=== PATIENT | female | born 1975 | race Two or more races ===

== ENCOUNTER 2022-07-01 20:05 | Inpatient (IN) | payer BC, OTHER ==
[~2022-07-01] VITALS: Ht 154.9 cm; Wt 68.2 kg
[2022-07-01 21:26] LABS: BASO # 0.1 10^3/uL (0.0-0.2); BASO % 0.3 % (0.0-1.0); EOS % 0.1 % (0.0-3.0); HEMATOCRIT 36.9 % (36.0-47.0); HEMOGLOBIN 11.5 g/dl (12.0-15.5); LYMPH # 1.3 10^3/uL (1.5-5.0); LYMPH % 7.8 % (24.0-44.0); MEAN CORPUSCULAR HEMOGLOBIN 25.3 pg (27.0-33.0); MEAN CORPUSCULAR HGB CONC 31.2 g/dl (32.0-36.5); MEAN CORPUSCULAR VOLUME 81.3 fl (80.0-96.0); NEUTROPHILS % 85.4 % (36.0-66.0); PLATELET COUNT, AUTOMATED 360 10^3/uL (150-450); RED BLOOD COUNT 4.54 10^6/uL (4.00-5.40); WHITE BLOOD COUNT 16.5 10^3/uL (4.0-10.0)
[2022-07-01 21:32] LABS: LIPASE 39 U/L (12-53)
[2022-07-01 21:34] LABS: ALBUMIN 3.6 G/DL (3.2-5.2); ALKALINE PHOSPHATASE 188 U/L (46-116); ALT/SGPT 15 U/L (7.0-40); AST/SGOT 13 U/L (<34); BILIRUBIN,DIRECT 0.1 MG/DL (<0.4); BILIRUBIN,TOTAL 0.5 MG/DL (0.3-1.2); BLOOD UREA NITROGEN 14 MG/DL (9-23); CALCIUM LEVEL 8.2 MG/DL (8.5-10.1); CARBON DIOXIDE LEVEL 23 MMOL/L (20-31); CHLORIDE LEVEL 106 MMOL/L (98-107); GLOMERULAR FILTRATION RATE > 60.0 (>58); GLUCOSE, FASTING 115 MG/DL (60-100); POTASSIUM SERUM 3.8 MMOL/L (3.5-5.1); SODIUM LEVEL 138 MMOL/L (136-145)
[2022-07-01 21:45] LABS: INR 1.01; PROTHROMBIN TIME 13.5 SECONDS (12.5-14.5)
[2022-07-01] MEDS ORDERED: MORPHINE 4 MG/ML 1ML VIAL IV ONE (21:55)
[2022-07-01] MEDS ORDERED: ONDANSETRON 4MG 2ML VIAL IV ONE (21:55)
[2022-07-01] MEDS ORDERED: NS 1,000 ML IV ONE (22:05)
[2022-07-01 22:29] LABS: HCG, SERUM QUALITATIVE NEGATIVE (NEGATIVE)
[2022-07-01] MEDS ORDERED: ISOVUE-370 76% 100ML VIAL As Ordered ONE (22:57)
[2022-07-01] MEDS ORDERED: cefTRIAXone SOD 1 GM in D5W MINI-BAG PLUS 50 ML IV ONE (23:00)
[2022-07-02] VITALS (10 sets, daily range): BP systolic 124–147; BP diastolic 70–87
[2022-07-02] MEDS ORDERED: KETOROLAC 30 MG/ML 1ML VIAL IV ONE (00:35)
[2022-07-02] MEDS ORDERED: ACETAMINOPHEN TAB 650MG DOSE (2X325MG) PO PRN (02:45)
[2022-07-02] MEDS ORDERED: ONDANSETRON 4MG 2ML VIAL IV PRN (02:45)
[2022-07-02] MEDS ORDERED: MORPHINE 2 MG/ML 1ML VIAL IV PRN (02:45)
[2022-07-02] MEDS: KETOROLAC 30 MG/ML 1ML VIAL IV PRN ×2 (05:58→18:53)
[2022-07-02] MEDS: NS 1,000 ML IV SCH ×2 (06:06→18:32)
[2022-07-02] MEDS: cefTRIAXone SOD 1 GM in D5W MINI-BAG PLUS 50 ML IV SCH (08:46)
[2022-07-02] MEDS ORDERED: HOME MED LIST COMPLETE! XX SCH (09:10)
[2022-07-02] MEDS ORDERED: LIDOCAINE 2% 100MG/5ML SDV (FOR ANES.) As Ordered ONE (15:51)
[2022-07-02] MEDS ORDERED: propofoL 200 MG/20 ML VIAL As Ordered ONE (15:51)
[2022-07-02] MEDS ORDERED: fentaNYL 100 MCG/2 ML INJECTION As Ordered ONE (15:52)
[2022-07-02] MEDS ORDERED: MIDAZOLAM INJ 2MG/2ML VIAL As Ordered ONE (15:52)
[2022-07-02] MEDS ORDERED: ISOVUE-300 61% 100ML VIAL As Ordered ONE (16:04)
[2022-07-03 02:00] VITALS: BP 150/80
[2022-07-03] MEDS: KETOROLAC 30 MG/ML 1ML VIAL IV PRN ×2 (02:26→08:40)
[2022-07-03] MEDS: NS 1,000 ML IV SCH ×2 (02:27→11:55)
[2022-07-03 06:02] VITALS: BP 145/84
[2022-07-03 06:57] LABS: HEMATOCRIT 33.6 % (36.0-47.0); HEMOGLOBIN 10.3 g/dl (12.0-15.5); MEAN CORPUSCULAR HEMOGLOBIN 25.3 pg (27.0-33.0); MEAN CORPUSCULAR HGB CONC 30.7 g/dl (32.0-36.5); MEAN CORPUSCULAR VOLUME 82.6 fl (80.0-96.0); PLATELET COUNT, AUTOMATED 282 10^3/uL (150-450); RED BLOOD COUNT 4.07 10^6/uL (4.00-5.40); WHITE BLOOD COUNT 7.2 10^3/uL (4.0-10.0)
[2022-07-03 07:20] LABS: ALBUMIN 2.9 G/DL (3.2-5.2); ALKALINE PHOSPHATASE 143 U/L (46-116); ALT/SGPT < 9 U/L (7.0-40); AST/SGOT 11 U/L (<34); BILIRUBIN,TOTAL 0.9 MG/DL (0.3-1.2); BLOOD UREA NITROGEN 8 MG/DL (9-23); CALCIUM LEVEL 7.8 MG/DL (8.5-10.1); CARBON DIOXIDE LEVEL 22 MMOL/L (20-31); CHLORIDE LEVEL 108 MMOL/L (98-107); CREATININE FOR GFR 0.53 MG/DL (0.55-1.30); GLOMERULAR FILTRATION RATE > 60.0 (>58); GLUCOSE, FASTING 82 MG/DL (60-100); MAGNESIUM LEVEL 1.7 MG/DL (1.8-2.4); POTASSIUM SERUM 3.5 MMOL/L (3.5-5.1); SODIUM LEVEL 140 MMOL/L (136-145); TOTAL PROTEIN 5.9 G/DL (5.7-8.2)
[2022-07-03] MEDS: cefTRIAXone SOD 1 GM in D5W MINI-BAG PLUS 50 ML IV SCH (08:40)
[2022-07-03] MEDS ORDERED: BACI1CAP PO (08:56)
[2022-07-03] MEDS ORDERED: SENO8.6T10 PO (08:56)
[2022-07-03] MEDS ORDERED: OXYB5TAB10 PO (08:56)
[2022-07-03] MEDS ORDERED: PHEN1TAB73 PO (08:56)
[2022-07-03] MEDS ORDERED: CIPR-249 PO (08:56)
[2022-07-03] MEDS ORDERED: PERC5TAB12 PO (08:56)
[2022-07-03] MEDS ORDERED: cloNIDine 0.2 MG TAB PO ONE (09:00)
[2022-07-03] MEDS ORDERED: PHENAZOPYRIDINE 100 MG TAB PO SCH (09:00)
[2022-07-03] MEDS ORDERED: oxyBUTYnin 5 MG TAB PO SCH (09:00)
[2022-07-03 09:37] VITALS: BP 126/82
[2022-07-03] MEDS ORDERED: MAGNESIUM OXIDE 400MG TAB (MAG-OX) PO ONE (09:55)
[2022-07-03] MEDS ORDERED: MAG SULF 1GM/100ML (MAG RUN) 1 GM in IV 1 EA IV ONE (10:00)
[2022-07-03 10:10] VITALS: BP 126/82
== END 2022-07-03 13:50 | disposition home or self-care (01) | DRG 463 ==
LOC: EDBD 20:05 → M ED 20:05 → M ED INP 07-02 02:43 → M MSPAV 07-02 03:23
PROVIDERS: ADMIT Family Medicine; ATTEND General Practice
PROC: 0T768DZ Dilation of Right Ureter with Intraluminal Device, Via Natural or Artificial Opening Endoscopic (ICD-10-PCS; principal; 2022-07-02 15:30)
DX: N13.6 Pyonephrosis (principal); I10 Essential (primary) hypertension

== ENCOUNTER → 2022-08-02 | Outpatient (CLI) | payer BC, OTHER ==
[~2022-08-02] MED LIST: BACI1CAP PO; CIPR-249 PO; OXYB5TAB10 PO; PERC5TAB12 PO; PHEN1TAB73 PO; SENO8.6T10 PO
[2022-08-02 11:50] LABS: HEMATOCRIT 35.9 % (36.0-47.0); MEAN CORPUSCULAR HEMOGLOBIN 25.1 pg (27.0-33.0); MEAN CORPUSCULAR HGB CONC 30.6 g/dl (32.0-36.5); PLATELET COUNT, AUTOMATED 352 10^3/uL (150-450); RED BLOOD COUNT 4.38 10^6/uL (4.00-5.40); WHITE BLOOD COUNT 5.4 10^3/uL (4.0-10.0)
[2022-08-02 12:18] LABS: ALBUMIN 3.3 G/DL (3.2-5.2); ALKALINE PHOSPHATASE 162 U/L (46-116); ALT/SGPT 19 U/L (7.0-40); AST/SGOT 11 U/L (<34); BILIRUBIN,TOTAL 0.5 MG/DL (0.3-1.2); BLOOD UREA NITROGEN 16 MG/DL (9-23); CALCIUM LEVEL 8.8 MG/DL (8.5-10.1); CARBON DIOXIDE LEVEL 27 MMOL/L (20-31); CHLORIDE LEVEL 107 MMOL/L (98-107); CREATININE FOR GFR 0.62 MG/DL (0.55-1.30); GLOMERULAR FILTRATION RATE > 60.0 (>58); GLUCOSE, FASTING 100 MG/DL (60-100); POTASSIUM SERUM 4.2 MMOL/L (3.5-5.1); SODIUM LEVEL 141 MMOL/L (136-145); TOTAL PROTEIN 6.7 G/DL (5.7-8.2)
== END ==
LOC: M LAB 10:58
PROVIDERS: ATTEND Urology
DX: N20.1 Calculus of ureter (principal)

== ENCOUNTER 2022-08-08 12:10 | Day surgery (SDC) | payer BC ==
[~2022-08-08] VITALS: Ht 152.4 cm; Wt 69.9 kg
[~2022-08-08 12:10] MED LIST changes: +ceFAZolin SOD 2 GM in IV 1 EA IV ONE
[2022-08-08] MEDS ORDERED: KETOROLAC 60MG 2ML VIAL As Ordered ONE (13:30)
[2022-08-08] MEDS ORDERED: propofoL 200 MG/20 ML VIAL As Ordered ONE (13:30)
[2022-08-08] MEDS ORDERED: ONDANSETRON 4MG 2ML VIAL As Ordered ONE (13:30)
[2022-08-08] MEDS ORDERED: fentaNYL 100 MCG/2 ML INJECTION As Ordered ONE (13:30)
[2022-08-08] MEDS ORDERED: ACETAMINOPHEN 1000MG 100ML IV BAG As Ordered ONE (13:30)
[2022-08-08] MEDS ORDERED: LIDOCAINE 2% 100MG/5ML SDV (FOR ANES.) As Ordered ONE (13:30)
[2022-08-08] MEDS ORDERED: MIDAZOLAM INJ 2MG/2ML VIAL As Ordered ONE (13:31)
[2022-08-08] MEDS ORDERED: ISOVUE-300 61% 100ML VIAL As Ordered ONE (13:42)
[2022-08-08] MEDS ORDERED: ONDANSETRON 4MG 2ML VIAL IV PRN (14:45)
[2022-08-08] MEDS ORDERED: oxyCODONE 5MG TAB PO PRN (14:45)
[2022-08-08] MEDS ORDERED: fentaNYL 100 MCG/2 ML INJECTION IV PRN (14:45)
[2022-08-08] MEDS ORDERED: MACR100C43 PO (14:52)
[2022-08-08 17:01] VITALS: BP 153/76
== END 2022-08-08 17:10 | disposition home or self-care (01) ==
LOC: M SDC 12:10
PROVIDERS: ATTEND Urology
DX: N20.0 Calculus of kidney (principal); Z79.899 Other long term (current) drug therapy
CPT/HCPCS: 52356; 74420; 81025; C1769; C2617; J0131; J0690; J1100; J1885; J2250; J2405; J3010; Q9967

== ENCOUNTER → 2022-10-01 | Outpatient (CLI) | payer BC ==
[~2022-10-01] MED LIST changes: +MACR100C43 PO; -ceFAZolin SOD 2 GM in IV 1 EA IV ONE
[2022-10-01 12:27] LABS: MEAN CORPUSCULAR HGB CONC 31.4 g/dl (32.0-36.5); MEAN CORPUSCULAR VOLUME 79.5 fl (80.0-96.0); PLATELET COUNT, AUTOMATED 385 10^3/uL (150-450); WHITE BLOOD COUNT 6.4 10^3/uL (4.0-10.0)
[2022-10-01 12:55] LABS: BLOOD UREA NITROGEN 14 MG/DL (9-23); CARBON DIOXIDE LEVEL 27 MMOL/L (20-31); CHLORIDE LEVEL 107 MMOL/L (98-107); CREATININE FOR GFR 0.63 MG/DL (0.55-1.30); GLOMERULAR FILTRATION RATE > 60.0 (>58); GLUCOSE, FASTING 90 MG/DL (60-100); SODIUM LEVEL 140 MMOL/L (136-145)
== END ==
LOC: M LAB 11:44
PROVIDERS: ATTEND Urology
DX: Z01.818 Encounter for other preprocedural examination (principal); N20.0 Calculus of kidney

== ENCOUNTER 2022-10-04 08:46 | Day surgery (SDC) | payer BC ==
[~2022-10-04] VITALS: Ht 152.4 cm; Wt 69.9 kg
[~2022-10-04 08:46] MED LIST changes: +ceFAZolin SOD 2 GM in IV 1 EA IV ONE
[2022-10-04] MEDS ORDERED: LR 1,000 ML IV SCH (09:25)
[2022-10-04] MEDS ORDERED: ONDANSETRON 4MG 2ML VIAL As Ordered ONE (09:55)
[2022-10-04] MEDS ORDERED: LIDOCAINE 2% 100MG/5ML SDV (FOR ANES.) As Ordered ONE (09:56)
[2022-10-04] MEDS ORDERED: propofoL 200 MG/20 ML VIAL As Ordered ONE (09:56)
[2022-10-04] MEDS ORDERED: MIDAZOLAM INJ 2MG/2ML VIAL As Ordered ONE (09:58)
[2022-10-04] MEDS ORDERED: fentaNYL 100 MCG/2 ML INJECTION As Ordered ONE (09:58)
[2022-10-04] MEDS ORDERED: ISOVUE-300 61% 100ML VIAL As Ordered ONE (10:53)
[2022-10-04] MEDS ORDERED: OXYB5TAB10 PO (11:15)
[2022-10-04] MEDS ORDERED: ACETAMINOPHEN 1000MG 100ML IV BAG As Ordered ONE (11:26)
[2022-10-04] MEDS ORDERED: FLOM0.4C39 PO (11:59)
[2022-10-04] MEDS ORDERED: oxyBUTYnin 5 MG TAB PO PRN (12:15)
[2022-10-04] MEDS ORDERED: PERCOCET 5MG/325MG TAB PO PRN (12:15)
[2022-10-04 13:37] VITALS: BP 148/79; TEMP 97.7; O2SAT 100
[2022-10-10 23:07] LABS: Ca Ox Monohydrate 50 % (.); Size 2x2 mm (.)
== END 2022-10-04 13:46 | disposition home or self-care (01) ==
LOC: M SDC 08:46
PROVIDERS: ATTEND Urology
DX: N20.1 Calculus of ureter (principal); N94.9 Unspecified condition associated with female genital organs and menstrual cycle; Z79.899 Other long term (current) drug therapy; Z88.1 Allergy status to other antibiotic agents
CPT/HCPCS: 52356; 76000; 81025; 82365; C1769; C1894; C2617; J0131; J0690; J1100; J2250; J2405; J3010; Q9967